=== PATIENT | female | born 1980 | race Hispanic/Latino ===

== ENCOUNTER 2016-12-09 19:31 | Emergency (ER) | payer SELFPAY ==
[2016-12-09 19:41] VITALS: BP 123/76; PULSE 82; RESP 18; TEMP 98.9; O2SAT 98
[2016-12-09 19:42] VITALS: BMI 28.3
--- NOTE | 2016-12-09 21:08 | ED PDOC ---
Arrival/HPI - General Chief Complaint: Chest Pain Time Seen by Provider: 12/09/16 20:05 Historian: Patient - History of Present Illness Narrative History of Present Illness (Text): 12/09/16 21:03 36yo female with history of anxiety present with complaint of chest pain and palpitation. States she recently did a botox on her face, her cousin sent her an article this evening on the side effect of Botox and she started having anxiety attack. states her symptoms her similar to her previous symptoms with anxiety. She notes that her symptoms resolved while waiting in ED lobby. Denies current chest pain, palpitation, dizziness, nausea, vomiting, LE edema, calf pain, any other complaint. Past Medical History - Provider Review Nursing Documentation Reviewed: Yes - Infectious Disease Hx of Infectious Diseases: None - Psychiatric Hx Psychophysiologic Disorder: Yes Hx Anxiety: Yes Hx Substance Use: Yes - Anesthesia Hx Anesthesia: No - Suicidal Assessment Feels Threatened In Home Enviroment: No Family/Social History - Physician Review Nursing Documentation Reviewed: Yes Family/Social History: Unknown Family HX Smoking Status: Never Smoked Hx Alcohol Use: Yes Frequency of alcohol use: Socially Hx Substance Use: Yes Allergies/Home Meds Allergies/Adverse Reactions: Allergies No Known Allergies Allergy (Verified 03/18/15 14:23) Home Medications: Home Meds Medication Instructions Recorded Confirmed No Known Home Med 12/09/16 12/09/16 Review of Systems - Physician Review All systems were reviewed & negative as marked: Yes - Review of Systems Constitutional: Normal Eyes: Normal ENT: Normal Respiratory: Normal Cardiovascular: Chest Pain, Palpitations Gastrointestinal: Normal Genitourinary Female: Normal Musculoskeletal: Normal Skin: Normal Neurological: Normal Endocrine: Normal Hemo/Lymphatic: Normal Psychiatric: Normal Physical Exam Vital Signs Reviewed: Yes Vital Signs Temp Pulse Resp BP Pulse Ox 12/09/16 19:41 98.9 F 82 18 123/76 98 Temperature: Afebrile Blood Pressure: Normal Pulse: Regular Respiratory Rate: Normal Appearance: Positive for: Well-Appearing, Non-Toxic, Comfortable Pain Distress: None Mental Status: Positive for: Alert and Oriented X 3 - Systems Exam Head: Present: Atraumatic, Normocephalic Pupils: Present: PERRL Extroacular Muscles: Present: EOMI Conjunctiva: Present: Normal Mouth: Present: Moist Mucous Membranes Neck: Present: Normal Range of Motion Respiratory/Chest: Present: Clear to Auscultation, Good Air Exchange. No: Respiratory Distress, Accessory Muscle Use Cardiovascular: Present: Regular Rate and Rhythm, Normal S1, S2. No: Murmurs Abdomen: Present: Normal Bowel Sounds. No: Tenderness, Distention, Peritoneal Signs Back: Present: Normal Inspection Upper Extremity: Present: Normal Inspection. No: Cyanosis, Edema Lower Extremity: Present: Normal Inspection. No: Edema Neurological: Present: GCS=15, CN II-XII Intact, Speech Normal Skin: Present: Warm, Dry, Normal Color. No: Rashes Psychiatric: Present: Alert, Oriented x 3, Normal Insight, Normal Concentration Medical Decision Making ED Course and Treatment: 12/10/16 00:51 PT was comfortable in ED. Stated her symptoms resolved. she was smiling and laughing in ED with her mother. she was advised to f/u with her PMD otherwise TRT ED for any new or recurrent symptoms. - EKG Interpretation Interpreted by ED Physician: Yes (NSR 90bpm) Disposition/Present on Arrival - Present on Arrival Any Indicators Present on Arrival: No History of DVT/PE: No History of Uncontrolled Diabetes: No Urinary Catheter: No History of Decub. Ulcer: No History Surgical Site Infection Following: None - Disposition Have Diagnosis and Disposition been Completed?: Yes Diagnosis: Anxiety Disposition: HOME/ ROUTINE Disposition Time: 21:10 Patient Plan: Discharge Condition: STABLE Discharge Instructions (ExitCare): Anxiety (ED) Additional Instructions: Follow up with your doctor Return to ED for any new or worsening symptoms Referrals: Katina LUQUE,Joon Peterson MD [Primary Care Provider] - Follow up with primary
--- NOTE | 2016-12-10 10:05 | CARD ---
APPROVED REPORT EKG Measurement Heart [id number] <Conclusion> Normal sinus rhythm Normal ECG
== END 2016-12-09 21:26 | disposition home or self-care (01) ==
LOC: ED 19:31
DX: F41.9 Anxiety disorder, unspecified (principal)